=== PATIENT | female | born 1965 | race Caucasian/White ===

== ENCOUNTER 2017-11-12 09:08 | Outpatient (CLI) | payer OTHER | END 2017-11-12 09:18 | disposition home or self-care (01) | LOC: NUCLEAR 09:08 | DX: Z76.89 Persons encountering health services in other specified circumstances (principal) ==

== ENCOUNTER → 2020-03-12 12:48 | Outpatient (CLI) | payer OTHER ==
[~2020-03-12 12:48] MED LIST: PERCOCET 5-3251 EACH PO
== END | disposition home or self-care (01) ==
LOC: LAB 12:48
PROVIDERS: ATTEND Radiology Diagnostic Radiology
DX: N20.0 Calculus of kidney (principal)

== ENCOUNTER 2020-03-14 07:25 | Outpatient (CLI) | payer OTHER | END 2020-03-14 07:27 | disposition home or self-care (01) | LOC: TOM 07:25 | PROVIDERS: ATTEND Surgery | DX: C77.3 Secondary and unspecified malignant neoplasm of axilla and upper limb lymph nodes (principal); C50.811 Malignant neoplasm of overlapping sites of right female breast ==

== ENCOUNTER 2020-03-19 08:03 | Outpatient (CLI) | payer OTHER | END 2020-03-19 08:05 | disposition home or self-care (01) | LOC: NUCLEAR 08:03 | PROVIDERS: ATTEND Surgery | DX: C50.811 Malignant neoplasm of overlapping sites of right female breast (principal); C77.3 Secondary and unspecified malignant neoplasm of axilla and upper limb lymph nodes | CPT/HCPCS: 78306; A9503 ==

== ENCOUNTER 2020-03-29 07:34 | Day surgery (SDC) | payer OTHER ==
[2020-03-29] MEDS ORDERED: PERCOCET 5-3251 EACH PO (11:10)
== END 2020-03-29 14:45 | disposition home or self-care (01) ==
LOC: CIR.AMB 07:34
PROVIDERS: ATTEND Surgery
DX: C50.811 Malignant neoplasm of overlapping sites of right female breast (principal)
CPT/HCPCS: 36561; C1751

== ENCOUNTER → 2020-09-20 | Day surgery (SDC) | payer OTHER ==
[~2020-09-20] MED LIST changes: +EZALLOR SPRINKL20 MG; +SYNTHROID; +VITAMIN D-40010 MCG; +ZESTRIL10 M1; +[UNRECOGNIZED DRUG - OTHER]
== END | disposition home or self-care (01) ==
LOC: LAB 09-14 09:21 → EDSTATUS 09-18 11:00 → CIR.AMB 07:18
PROVIDERS: ATTEND Surgery
DX: C50.811 Malignant neoplasm of overlapping sites of right female breast (principal); Z20.828 Contact with and (suspected) exposure to other viral communicable diseases

== ENCOUNTER 2022-01-23 06:53 | Day surgery (SDC) | payer OTHER ==
[~2022-01-23 06:53] MED LIST changes: -SYNTHROID; +SYNTHROID PO
== END 2022-01-23 20:30 | disposition home or self-care (01) ==
LOC: CIR.AMB 06:53
PROVIDERS: ATTEND Plastic Surgery
DX: N60.31 Fibrosclerosis of right breast (principal); I10 Essential (primary) hypertension; G47.33 Obstructive sleep apnea (adult) (pediatric); Z99.89 Dependence on other enabling machines and devices; E03.9 Hypothyroidism, unspecified; K44.9 Diaphragmatic hernia without obstruction or gangrene; Z20.822 Contact with and (suspected) exposure to COVID-19; C50.912 Malignant neoplasm of unspecified site of left female breast